=== PATIENT | female | born 1980 | race Caucasian/White ===

== ENCOUNTER 2016-07-07 14:15 | Emergency (ER) | payer BC, MEDICAID ==
[~2016-07-07] VITALS: Ht 177.8 cm; Wt 70.0 kg
[~2016-07-07 14:15] MED LIST: HYDR-3533 PO; IBUP600T26 PO; NAPR-576 PO; Z.0.BCPILL PO; ZOFR4TAB PO; ZOFR4TAB3 SL
[2016-07-07 14:17] VITALS: BP 135/97; PULSE 83; RESP 12; TEMP 98.4; O2SAT 100
--- NOTE | 2016-07-07 15:49 | PD ---
HPI Chief Complaint: Cardiac Complaint Time Seen by Provider: 15:45 Travel History International Travel<30 days: No Contact w/Intl Traveler<30days: No Traveled to known affect area: No History of Present Illness HPI 35-year-old female that presents to the ED for evaluation of palpitations and headache. Per patient this morning she woke up with a headache that was severe. Per patient his usual for her depression never usually gets headaches and not really when she wakes up. She denies any fevers chills or sweats. Per patient she took some [id number] pain relievers for headaches that have caffeine in it and she took 2 pills as noted on the box. This was successful in helping get rid of her headache but she feels that the Pain in the pills might have exacerbated her palpitations. Per patient since age 18 she's been having sensations of palpitations on and off through her entire life. Per patient most the time she is able to live with it and she actually that follow- up with a rivet flunky at some point who recommended that she takes metoprolol but she apparently did stop using this about a year and a half ago secondary to improvement of symptoms and no need for it per patient. She does have a history of mitral prolapse but no other acute disease. Patient only takes control. She denies any recent travel. The patient in the afternoon when she was working she developed another headache that felt similar to the one she had this morning so she took another dose of the pain reliever and it also had caffeine. Per patient she is concerned that maybe this caused the worsening palpitations. She denies any abdominal pain. No nausea or vomiting. The possibility of . No urinary or bowel movement issues. No cough or runny nose. The patient last time she had something like this she was told she had walking pneumonia. [facility] Past Medical History Heart Rhythm Problems: Yes (TACHYCARDIA) Cardiovascular Problems: Yes (MVP) Genitourinary: Yes (RECENT HEMATURIA) Immunizations Current: Yes ?: Not LMP: 07/04/16 Dilation and Curettage (D&C): Yes Past Surgical History Appendectomy: Yes Section: Yes (x 1) Thoracic Surgery: Yes (BREAST AUGMENTATION) Other Surgery: Yes (ADENOIDECTOMY) Social History Alcohol Use: Yes (SOCIALLY) Tobacco Use: No (SOCIALLY) Substance Use: No Allergies-Medications (Allergen,Severity, Reaction): Coded Allergies: Demerol (Verified Allergy, Severe, Anaphylaxis, 07/07/16) Oxycodone (Verified Allergy, Severe, Anaphylaxis, 07/07/16) Reported Meds & Prescriptions Reported Meds & Active Scripts Active No Active Prescriptions or Reported Medications Review of Systems Except as stated in HPI: all other systems reviewed are Neg Physical Exam Narrative GENERAL: SKIN: Warm and dry. HEAD: Atraumatic. Normocephalic. EYES: Pupils equal and round. No scleral icterus. No injection or drainage. ENT: No nasal bleeding or discharge. Mucous membranes pink and moist. Tongue is midline. No uvula deviation. NECK: Trachea midline. No JVD. CARDIOVASCULAR: Regular rate and rhythm. No murmurs, S3, S4. RESPIRATORY: No accessory muscle use. Clear to auscultation. Breath sounds equal bilaterally. GASTROINTESTINAL: Abdomen soft, non-tender, nondistended. Hepatic and splenic margins not palpable. MUSCULOSKELETAL: Extremities without clubbing, cyanosis, or edema. No obvious deformities. Full range of motion of the upper and lower extremities bilaterally. 2+ pulses bilaterally. NEUROLOGICAL: Awake and alert. No obvious cranial nerve deficits. Motor grossly within normal limits. Five out of 5 muscle strength in the arms and legs. Normal speech. PSYCHIATRIC: Appropriate mood and affect; insight and judgment normal. Data Data Last Documented VS Vital Signs Date Time Temp Pulse Resp B/P Pulse Ox O2 Delivery O2 Flow Rate FiO2 07/07/16 14:17 98.4 83 12 135/97 100 Room Air Orders Electrocardiogram (07/07/16 ) Complete Blood Count With Diff (07/07/16 15:31) Basic Metabolic Panel (Bmp) (07/07/16 15:31) Ckmb (Isoenzyme) Profile (07/07/16 15:31) Troponin I (07/07/16 15:31) Magnesium (Mg) (07/07/16 15:31) Thyroid Stimulating Hormone (07/07/16 15:31) Chest, Single Ap (07/07/16 15:31) Ct Brain W/O Iv Contrast(Rout) (07/07/16 15:31) Ed Urine Pregnancytest Poc (07/07/16 15:31) Acetaminophen (Tylenol) (07/07/16 17:00) Labs Laboratory Tests Test 07/07/16 15:35 White Blood Count 7.6 TH/MM3 Red Blood Count 4.49 MIL/MM3 Hemoglobin 13.6 GM/DL Hematocrit 40.3 % Mean Corpuscular Volume 89.8 FL Mean Corpuscular Hemoglobin 30.2 PG Mean Corpuscular Hemoglobin 33.6 % Concent Red Cell Distribution Width 12.4 % Platelet Count 416 TH/MM3 Mean Platelet Volume 7.0 FL Neutrophils (%) (Auto) 62.8 % Lymphocytes (%) (Auto) 26.0 % Monocytes (%) (Auto) 7.1 % Eosinophils (%) (Auto) 3.1 % Basophils (%) (Auto) 1.0 % Neutrophils # (Auto) 4.8 TH/MM3 Lymphocytes # (Auto) 2.0 TH/MM3 Monocytes # (Auto) 0.5 TH/MM3 Eosinophils # (Auto) 0.2 TH/MM3 Basophils # (Auto) 0.1 TH/MM3 CBC Comment DIFF FINAL Differential Comment Sodium Level 139 MEQ/L Potassium Level 3.7 MEQ/L Chloride Level 104 MEQ/L Carbon Dioxide Level 28.1 MEQ/L Anion Gap 7 MEQ/L Blood Urea Nitrogen 10 MG/DL Creatinine 1.02 MG/DL Estimat Glomerular Filtration 61 ML/MIN Rate Random Glucose 75 MG/DL Calcium Level 8.7 MG/DL Magnesium Level 2.2 MG/DL Total Creatine Kinase 91 U/L Troponin I LESS THAN 0.02 NG/ML Thyroid Stimulating Hormone 1.280 uIU/ML 3rd Gen [facility] Medical Decision Making Medical Screen Exam Complete: Yes Emergency Medical Condition: Yes Medical Record Reviewed: Yes Interpretation(s) CBC & BMP Diagram 07/07/16 15:35 EKG shows sinus rhythm with no sign of acute ischemia or arrhythmia troponin and CKMB negative Last Impressions Chest X-Ray 07/07/16 1531 Signed Impressions: Service Date/Time: June 16:17 - CONCLUSION: The hazy opacity overlying the lower lung zones bilaterally is felt to be related to the overlying breast implants. No definite acute finding is identified. If symptoms persist consider PA and lateral views of the chest for further evaluation. Mono Young MD Ct head negative Differential Diagnosis Palpitations versus normal exam versus CVA versus ACS versus migraine headache versus tension headache versus anxiety versus pneumonia versus pleurisy Narrative Course 35-year-old female that presents to the ED for evaluation of possible palpitations and headache. Patient was properly examined and was found to have signs and symptoms of unclear etiology at this time. From history and physical this appears to be possible reaction to caffeine taken to help with headache. Patient denies any having headaches like this in the past. Because of the CT of the head will be done. Patient is neurovascular intact. I do recommend lab work and imaging to rule out any sign of acute from the heart and lungs. Labs and imaging showed Diagnosis Primary Impression: Palpitations Additional Impression: Headache Qualified Code: G44.209 - Acute non intractable tension-type headache Patient Instructions: General Instructions Additional Instructions: Motrin or Tylenol for pain. Follow-up with PCP. See ED worsening symptoms. Try not to take too much caffeine. I recommend follow with rivet flunky at this continues to become a problem as she could require to be on metoprolol again. Med/Other Pt SpecificInfo: No Change to Meds Scripts No Active Prescriptions or Reported Meds Disposition: 01 DISCHARGE HOME Condition: Stable Khang Hernandez Jul 07, 2016 15:49
[2016-07-07 16:06] LABS: AUTOMATED NEUTROPHIL # 4.8 TH/MM3 (1.8-7.7); BASOPHIL # 0.1 TH/MM3 (0-0.2); EOSINOPHIL # 0.2 TH/MM3 (0-0.4); EOSINOPHIL % 3.1 % (0.0-4.0); HEMATOCRIT 40.3 % (35.0-46.0); HEMO FLAGS DIFF FINAL; MEAN CELL VOLUME 89.8 FL (80.0-100.0); MEAN CORPUSCULAR HEMOGLOBIN 30.2 PG (27.0-34.0); MEAN CORPUSCULAR HGB CONC 33.6 % (32.0-36.0); MONO % 7.1 % (0.0-8.0); NEUT % 62.8 % (16.0-70.0); PLATELET COUNT 416 TH/MM3 (150-450); RED BLOOD COUNT 4.49 MIL/MM3 (4.00-5.30); RED CELL DISTRIBUTION WIDTH 12.4 % (11.6-17.2); WHITE BLOOD COUNT 7.6 TH/MM3 (4.0-11.0)
[2016-07-07 16:37] LABS: ANION GAP 7 MEQ/L (5-15); BICARBONATE 28.1 MEQ/L (21.0-32.0); BLOOD UREA NITROGEN 10 MG/DL (7-18); CHLORIDE 104 MEQ/L (98-107); GLOMERULAR FILTRATION RATE 61 ML/MIN (>89); MAGNESIUM 2.2 MG/DL (1.5-2.5); POTASSIUM 3.7 MEQ/L (3.5-5.1); SODIUM (NA) 139 MEQ/L (136-145)
--- NOTE | 2016-07-07 16:49 | RADRPT ---
EXAM DATE/TIME: 07/07/2016 16:17 [facility] COMPARISON: CT ABDOMEN & PELVIS W/O CONTRAST, January 02, 2016, 2:47. INDICATIONS : Chest pain, short of breath. MEDICAL HISTORY : Mitral valve prolapse. Tachycardia. Neurocardiogenic syncope. SURGICAL HISTORY : None. ENCOUNTER: Initial ACUITY: 1 day PAIN SCORE: 3/10 LOCATION: chest FINDINGS: Portable upright AP view of the chest demonstrate normal-sized cardiac silhouette. There are hazy opa cities overlying the lower lung zones bilaterally. There appear to be breast implants present. Otherw ise, no effusion, consolidation, or pneumothorax is identified. Bones and soft tissues demonstrate no acute finding. CONCLUSION: The hazy opacity overlying the lower lung zones bilaterally is felt to be related to the overlying br east implants. No definite acute finding is identified. If symptoms persist consider PA and lateral v iews of the chest for further evaluation. Mono Young MD on July 07, 2016 at 16:43 Board Certified Radiologist. This report was verified electronically.
[2016-07-07 16:50] LABS: CREATINE KINASE 91 U/L (26-192)
[2016-07-07] MEDS ORDERED: ACETAMINOPHEN 325 MG TAB PO ONE (17:00)
[2016-07-07 18:51] VITALS: BP 115/63; PULSE 71; RESP 16; O2SAT 100
--- NOTE | 2016-07-07 20:51 | RADRPT ---
EXAM DATE/TIME: 07/07/2016 19:39 [facility] COMPARISON: No previous studies available for comparison. INDICATIONS : Dizziness and headache. RADIATION DOSE: 40.66 CTDIvol (mGy) MEDICAL HISTORY : None SURGICAL HISTORY : None. ENCOUNTER: Initial ACUITY: 1 day PAIN SCALE: 7/10 LOCATION: cranial TECHNIQUE: Multiple contiguous axial images were obtained of the head. Using automated exposure control and adj ustment of the mA and/or kV according to patient size, radiation dose was kept as low as reasonably a chievable to obtain optimal diagnostic quality images. FINDINGS: CEREBRUM: The ventricles are normal for age. No evidence of midline shift, mass lesion, hemorrhage or acute in farction. No extra-axial fluid collections are seen. POSTERIOR FOSSA: The cerebellum and brainstem are intact. The 4th ventricle is midline. The cerebellopontine angle i s unremarkable. EXTRACRANIAL: The visualized portion of the orbits is intact. SKULL: The calvaria is intact. No evidence of skull fracture. CONCLUSION: Normal examination. Mono Boyd MD on July 07, 2016 at 20:49 Board Certified Radiologist. This report was verified electronically.
[2016-07-07] MEDS ORDERED: METO25TA3 PO (20:55)
[2016-07-07] MEDS ORDERED: METOPROLOL TARTRATE 25 MG TAB PO ONE (21:00)
--- NOTE | 2016-07-08 16:43 | EKG ---
Date Performed: 07/07/2016 Time Performed: 14:36:51 PTAGE: 35 years EKG: Sinus rhythm NORMAL ECG NO PREVIOUS TRACING DOCTOR: Pedro Carney Interpretating Date/Time 07/08/2016 16:41:29
== END 2016-07-07 21:27 | disposition home or self-care (01) ==
LOC: NEPE 14:15
DX: R00.2 Palpitations (principal); R51 Headache; R07.9 Chest pain, unspecified; R06.02 Shortness of breath
CPT/HCPCS: 70450; 71010; 80048; 82550; 83735; 84443; 84484; 84703; 85025; 93005

== ENCOUNTER 2017-01-09 17:29 | Emergency (ER) | payer BC ==
[~2017-01-09] VITALS: Ht 177.8 cm; Wt 73.0 kg
[~2017-01-09 17:29] MED LIST changes: -HYDR-3533 PO; -IBUP600T26 PO; +METO25TA3 PO; -NAPR-576 PO; -Z.0.BCPILL PO; -ZOFR4TAB PO; -ZOFR4TAB3 SL
[2017-01-09 17:32] VITALS: BP 134/80; PULSE 75; RESP 17; TEMP 98.3; O2SAT 99
[2017-01-09] MEDS ORDERED: METO25TA3 PO (17:59)
[2017-01-09 18:52] LABS: AUTOMATED NEUTROPHIL # 4.8 TH/MM3 (1.8-7.7); BASOPHIL # 0.1 TH/MM3 (0-0.2); EOSINOPHIL # 0.3 TH/MM3 (0-0.4); EOSINOPHIL % 3.3 % (0.0-4.0); HEMATOCRIT 37.9 % (35.0-46.0); HEMO FLAGS DIFF FINAL; LYMPH % 29.1 % (9.0-44.0); LYMPHOCYTE # 2.4 TH/MM3 (1.0-4.8); MEAN CELL VOLUME 89.4 FL (80.0-100.0); MEAN CORPUSCULAR HEMOGLOBIN 30.5 PG (27.0-34.0); MEAN CORPUSCULAR HGB CONC 34.1 % (32.0-36.0); MONO % 7.4 % (0.0-8.0); NEUT % 59.2 % (16.0-70.0); PLATELET COUNT 376 TH/MM3 (150-450); RED BLOOD COUNT 4.24 MIL/MM3 (4.00-5.30); RED CELL DISTRIBUTION WIDTH 12.3 % (11.6-17.2); WHITE BLOOD COUNT 8.2 TH/MM3 (4.0-11.0)
--- NOTE | 2017-01-09 18:54 | PD ---
HPI Chief Complaint: Abdominal Pain Time Seen by Provider: 20:00 Travel History International Travel<30 days: No Contact w/Intl Traveler<30days: No Traveled to known affect area: No History of Present Illness HPI 36-year-old female A1 with chief complaint of right lower quadrant pain. Patient had positive home test. LMP 12/05/16. Symptom duration 6 days. Associated with some nausea without vomiting. Patient denies vaginal bleeding, discharge, dysuria, frequency, urgency. Patient called her GAME [employer] F[employer] MANAGER Dr. Schultz who instructed her to come to the emergency department to rule out ectopic . PFSH Past Medical History Heart Rhythm Problems: Yes (TACHYCARDIA) Cardiovascular Problems: Yes (MITRAL VALVE PROLAPSE) Diabetes: No Genitourinary: Yes (RECENT HEMATURIA) Immunizations Current: Yes Tetanus Vaccination: > 5 Years Influenza Vaccination: No ?: LMP: 12/05/16 Dilation and Curettage (D&C): Yes Past Surgical History Appendectomy: Yes Section: Yes (x 1) Thoracic Surgery: Yes (BREAST AUGMENTATION) Other Surgery: Yes (ADENOIDECTOMY) Social History Alcohol Use: Yes (SOCIALLY) Tobacco Use: No (SOCIALLY) Substance Use: No Allergies-Medications (Allergen,Severity, Reaction): Coded Allergies: Demerol (Verified Allergy, Severe, Anaphylaxis, 01/09/17) Oxycodone (Verified Allergy, Severe, Anaphylaxis, 01/09/17) Reported Meds & Prescriptions Reported Meds & Active Scripts Active Reported Metoprolol Tartrate 25 Mg Tab 25 Mg PO BID Review of Systems Except as stated in HPI: all other systems reviewed are Neg General / Constitutional: No: Fever Eyes: No: Visual changes HENT: No: Headaches Cardiovascular: No: Chest Pain or Discomfort Respiratory: No: Shortness of Breath Gastrointestinal: Positive: Abdominal Pain Genitourinary: No: Dysuria Musculoskeletal: No: Pain Skin: No Rash Neurologic: No: Weakness Psychiatric: No: Depression Physical Exam Narrative GENERAL: Alert, well-appearing female no acute distress. SKIN: Focused skin assessment warm/dry. HEAD: Atraumatic. Normocephalic. EYES: Pupils equal and round. No scleral icterus. No injection or drainage. ENT: No nasal bleeding or discharge. Mucous membranes pink and moist. NECK: Trachea midline. No JVD. CARDIOVASCULAR: Regular rate and rhythm. No murmur appreciated. RESPIRATORY: No accessory muscle use. Clear to auscultation. Breath sounds equal bilaterally. GASTROINTESTINAL: Abdomen soft, + TTP RLQ, no guarding, nondistended. Hepatic and splenic margins not palpable. No CVA tenderness GENITOURINARY: small amount of whitish/yellow discharge in the vaginal vault, cervical os closed, friable cervix, no adnexal mass. MUSCULOSKELETAL: No obvious deformities. No clubbing. No cyanosis. No edema. NEUROLOGICAL: Awake and alert. No obvious cranial nerve deficits. Motor grossly within normal limits. Normal speech. PSYCHIATRIC: Appropriate mood and affect; insight and judgment normal. Data Data Last Documented VS Vital Signs Date Time Temp Pulse Resp B/P Pulse Ox O2 Delivery O2 Flow Rate FiO2 01/09/17 17:57 18 01/09/17 17:32 98.3 75 134/80 99 Orders Beta Hcg (Quant/Titer) (01/09/17 18:03) Complete Blood Count With Diff (01/09/17 18:03) Basic Metabolic Panel (Bmp) (01/09/17 18:03) Type And Screen (01/09/17 18:03) Ed Urine Pregnancytest Poc (01/09/17 18:03) Us Pelvis (Ques Pr/Ect)W Trans (01/09/17 ) Gc And Chlamydia Pcr (01/09/17 20:17) Wet Prep Profile (01/09/17 20:17) Azithromycin Powd Pack (Zithromax Powd P (01/09/17 20:45) Ceftriaxone Inj (Rocephin Inj) (01/09/17 20:45) Lidocaine 1% Inj (50 Ml) (Xylocaine 1% I (01/09/17 20:45) Labs Laboratory Tests Test 01/09/17 01/09/17 18:10 20:19 White Blood Count 8.2 TH/MM3 Red Blood Count 4.24 MIL/MM3 Hemoglobin 12.9 GM/DL Hematocrit 37.9 % Mean Corpuscular Volume 89.4 FL Mean Corpuscular Hemoglobin 30.5 PG Mean Corpuscular Hemoglobin 34.1 % Concent Red Cell Distribution Width 12.3 % Platelet Count 376 TH/MM3 Mean Platelet Volume 7.1 FL Neutrophils (%) (Auto) 59.2 % Lymphocytes (%) (Auto) 29.1 % Monocytes (%) (Auto) 7.4 % Eosinophils (%) (Auto) 3.3 % Basophils (%) (Auto) 1.0 % Neutrophils # (Auto) 4.8 TH/MM3 Lymphocytes # (Auto) 2.4 TH/MM3 Monocytes # (Auto) 0.6 TH/MM3 Eosinophils # (Auto) 0.3 TH/MM3 Basophils # (Auto) 0.1 TH/MM3 CBC Comment DIFF FINAL Differential Comment Sodium Level 137 MEQ/L Potassium Level 3.9 MEQ/L Chloride Level 103 MEQ/L Carbon Dioxide Level 27.4 MEQ/L Anion Gap 7 MEQ/L Blood Urea Nitrogen 12 MG/DL Creatinine 0.74 MG/DL Estimat Glomerular Filtration 88 ML/MIN Rate Random Glucose 82 MG/DL Calcium Level 8.7 MG/DL Human Chorionic Gonadotropin, 3102 MIU/ML Quant Blood Type A POSITIVE Antibody Screen NEGATIVE Blood Bank Comment Clue Cells (Wet Prep) NONE SEEN Vaginal Trichomonas (Wet Prep) NONE SEEN Vaginal Yeast (Wet Prep) NONE SEEN Chlamydia trachomatis DNA NOT DETECTED (PCR) Neisseria gonorrhoeae DNA NOT DETECTED (PCR) MDM Medical Decision Making Medical Screen Exam Complete: Yes Emergency Medical Condition: Yes Differential Diagnosis Ectopic , ruptured cyst, UTI, PID Narrative Course 36-year-old female with right lower quadrant pain 6 days. Patient has no vaginal bleeding or discharge. IV access established, labs/ua ordered and pending, ultrasound ordered and pending CBC unremarkable BMP unremarkable beta hc transvaginal US: IUP with gestational sac answering 7 mm present no pole identified. Close obstetric follow-up recommended. Diagnostic findings discussed with patient. She was given a copy of ultrasound report and lab work. She was instructed to follow-up with her GAME [employer]ING FARM MANAGER in 1-2 days. Patient verbalizes understanding and agrees to plan. Strict return precautions were discussed with patient. Diagnosis Primary Impression: Threatened Additional Impression: Cervicitis Referrals: Seda Hammonds MD Additional Instructions: You need to have a repeat serum HCG in 2 days. It is important to follow up with your INFORMATICS MANAGER in 1-2 days. Return to the emergency department if you develop new or worsening symptoms such as increasing pain, fever/chills, or any new symptom. you were given a copy of your Ultrasound & lab work, please go over this with your INFORMATICS MANAGER Dr. Hammonds. Disposition: DISCHARGE HOME Condition: Stable Jannette Wallace Jan 09, 2017 18:54
[2017-01-09 19:07] LABS: BICARBONATE 27.4 MEQ/L (21.0-32.0); POTASSIUM 3.9 MEQ/L (3.5-5.1)
--- NOTE | 2017-01-09 20:11 | RADRPT ---
EXAM DATE/TIME: 01/09/2017 19:13 [facility] COMPARISON: No previous studies available for comparison. INDICATIONS : Right sided pelvic pain. LAB(S): Beta-hC MEDICAL HISTORY : Mitral valve prolapse. Tachycardia. Hematuria. SURGICAL HISTORY : Appendectomy. section. Dilation and curettage. Adenoidectomy. ENCOUNTER: Initial ACUITY: 1 week PAIN SCORE: 8/10 LOCATION: Bilateral pelvis MEASUREMENTS: UTERUS: 8.3 x 5.8 x 4.7 cm ENDOMETRIAL STRIPE: 7 mm RIGHT OVARY: 2.6 x 1.7 x 1.4 cm LEFT OVARY: 3.0 x 1.2 x 1.4 cm FREE FLUID: No FINDINGS: There is a 6 x 7 mm cyst in the fundal region of the endometrium which does contain a yolk sac, but a pole is not identified. No heart rate documented. 2 nabothian cysts in the cervix. Th ere are 2 cystic structures in the right ovary which around and without increased flow on color Doppl er measuring 1.2 x 1.2 cm and 1.2 x 1.0 cm. The left ovary has a normal appearance. No evidence of free fluid in the cul-de-sac. CONCLUSION: A gestational sac measuring 7 mm is identified containing a yolk sac, but no measurable pole se en. A pole should be seen with a quantitative hCG of 3000; recommend close obstetric followup. Stiven Luna MD on January 09, 2017 at 20:06 Board Certified Radiologist. This report was verified electronically.
[2017-01-09] MEDS ORDERED: cefTRIAXone 250 MG VIAL IM ONE (20:45)
[2017-01-09] MEDS ORDERED: LIDOCAINE HCL 1% 50 ML VIAL IM ONE (20:45)
[2017-01-09] MEDS ORDERED: AZITHROMYCIN PWD FOR SUSP 1 GM PACKET PO ONE (20:45)
[2017-01-09 23:10] LABS: CHLAMYDIA PCR NOT DETECTED (NOT DETECT); NEISSERIA PCR NOT DETECTED (NOT DETECT)
== END 2017-01-09 21:15 | disposition home or self-care (01) ==
LOC: NEPD 17:29
DX: O20.0 Threatened abortion (principal); O23.519 Infections of cervix in pregnancy, unspecified trimester; Z86.79 Personal history of other diseases of the circulatory system; Z3A.00 Weeks of gestation of pregnancy not specified
CPT/HCPCS: 76700; 76817; 80048; 84702; 84703; 85025; 86850; 86900; 86901; 87210; 87491; 87591; 96372; 99285; J0696

== ENCOUNTER 2017-02-17 19:30 | Emergency (ER) | payer BC ==
[~2017-02-17] VITALS: Ht 177.8 cm; Wt 75.0 kg
[~2017-02-17 19:30] MED LIST changes: +PREN29TA PO
[2017-02-17 19:38] VITALS: BP 133/64; PULSE 72; RESP 14; TEMP 98.2; O2SAT 100
--- NOTE | 2017-02-17 19:50 | PD ---
HPI Chief Complaint: Related Problem Time Seen by Provider: 19:43 Travel History International Travel<30 days: No Contact w/Intl Traveler<30days: No Traveled to known affect area: No History of Present Illness HPI 36 year female arrives to the emergency department via EMS from [facility] with complaint of vaginal bleeding and abdominal cramping. Patient is with last menstrual cycle occurring December 05. Patient was transferred here for an ultrasound. The [place] facility does not have the equipment to offer the ultrasound. Patient denies any shortness breath, chest pain, dizziness, lightheadedness, headache, urinary symptoms or other vaginal discharge. Patient states she is feeling a little bit nauseous but denies any vomiting or diarrhea. The patient has had 3 pregnancies with one resulting in a live . . PFSH Past Medical History Heart Rhythm Problems: Yes (TACHYCARDIA) Cardiovascular Problems: Yes (MITRAL VALVE PROLAPSE) Diabetes: No Diminished Hearing: No Immunizations Current: Yes Dilation and Curettage (D&C): Yes Past Surgical History Appendectomy: Yes Section: Yes (x 1) Other Surgery: Yes (ADENOIDECTOMY, breast augmentation) Social History Alcohol Use: No Tobacco Use: No Substance Use: No Allergies-Medications (Allergen,Severity, Reaction): Coded Allergies: meperidine (Unverified Allergy, Severe, Anaphylaxis, 02/17/17) oxycodone (Unverified Allergy, Severe, Anaphylaxis, 02/17/17) Reported Meds & Prescriptions Reported Meds & Active Scripts Active Reported Plus Iron 29-1 mg ( Vit-Iron Carbonyl) 29 Mg Iron-1 Mg Tab 1 Tab PO DAILY Review of Systems Except as stated in HPI: all other systems reviewed are Neg Physical Exam Narrative GENERAL: Well-nourished well-developed 36-year-old female complaining of vaginal bleeding and abdominal cramping at approximately 9-1/2 weeks . SKIN: Focused skin assessment warm/dry. HEAD: Atraumatic. Normocephalic. EYES: Pupils equal and round. No scleral icterus. No injection or drainage. ENT: No nasal bleeding or discharge. Mucous membranes pink and moist. NECK: Trachea midline. No JVD. CARDIOVASCULAR: Regular rate and rhythm. No murmur appreciated. RESPIRATORY: No accessory muscle use. Clear to auscultation. Breath sounds equal bilaterally. GASTROINTESTINAL: Abdomen soft, non-tender, nondistended. Hepatic and splenic margins not palpable. MUSCULOSKELETAL: No obvious deformities. No clubbing. No cyanosis. No edema. NEUROLOGICAL: Awake and alert. No obvious cranial nerve deficits. Motor grossly within normal limits. Normal speech. PSYCHIATRIC: Appropriate mood and affect; insight and judgment normal. Data Data Last Documented VS Vital Signs Date Time Temp Pulse Resp B/P (MAP) Pulse Ox O2 Delivery O2 Flow Rate FiO2 02/17/17 19:38 98.2 72 14 133/64 (87) 100 Orders Orders Us Pelvis (Ques Pr/Ect)W Trans (02/17/17 ) Misoprostol (Cytotec) (02/17/17 22:45) MDM Medical Decision Making Medical Screen Exam Complete: Yes Emergency Medical Condition: Yes Medical Record Reviewed: Yes Differential Diagnosis Threatened miscarriage, round ligament pain, ovarian cyst, inevitable miscarriage, missed Narrative Course 36-year-old female arrived to the emergency department for evaluation of abdominal cramping and vaginal bleeding all approximately 9-1/2 weeks . Last menstrual cycle . This is the patient's third . One has resulted in a live . Patient had one miscarriage several years ago. She was referred to [place] emergency Department from [facility] for an ultrasound. Patient had a full workup at [facility] including pelvic exam and lab work. The only thing [facility] could not provide for the patient is an ultrasound. Pelvic ultrasound ordered and pending Pelvic ultrasound revealed estimated gestational age 6 weeks 4 days with no heart tones identified with subchorionic hemorrhage noted. Patient's previous miscarriage in 2003 resulted in hemorrhage needing a blood transfusion. Spoke with OB hospitalist on-call and he recommended giving patient 600 mcg by mouth Cytotec and ensuring adequate pain relief for home if she starts experiencing pain while miscarrying. Patient will be discharged home with prescription for Lortab. Diagnosis Primary Impression: Incomplete miscarriage Referrals: Electrologist Primary Care Physician Patient Instructions: General Instructions, Miscarriage (ED) Additional Instructions: Take Lortab as directed as needed as needed for pain Follow up with your WET ROLLER next week Return to the emergency department for emergent conditions Thank you for choosing [place] [facility] for your health care needs Med/Other Pt SpecificInfo: Prescription(s) given Scripts Hydrocodone-Acetaminophen (Lortab) 5-325 Mg Tab 1 TAB PO Q6H Y for PAIN, #12 TAB 0 Refills Prov: Manasa Colindres MD 02/17/17 Disposition: 01 DISCHARGE HOME Condition: Stable Christianne Torres Feb 17, 2017 19:50
--- NOTE | 2017-02-17 22:12 | RADRPT ---
EXAM DATE/TIME: 02/17/2017 21:02 [facility] COMPARISON: No previous studies available for comparison. INDICATIONS : Bleeding and pain with . LAB(S): Beta-hC MEDICAL HISTORY : . Tachycardia. Mitral valve prolapse. Miscarriage. SURGICAL HISTORY : Appendectomy. section. Breast augmentation. Dilation and curettage. ENCOUNTER: Subsequent ACUITY: 1 day PAIN SCORE: 3/10 LOCATION: Bilateral pelvis MEASUREMENTS: UTERUS: 10.8 x 8.4 x 6.9 cm ENDOMETRIAL STRIPE: >20 mm RIGHT OVARY: 2.2 x 2.4 x 1.6 cm LEFT OVARY: 1.8 x 0.8 x 1.2 cm FREE FLUID: No CROWN RUMP LENGTH: 0.7 cm = 6 WKS 4 DAYS FHR: Non visualized. BPM FINDINGS: pole is visualized within gestational sac characteristic of a 6 week 4 day gestational age. How ever no heart tones identified. Uterus has a subchorionic hemorrhage measuring up to 4.1 x 3.4 x 1 cm. Probable corpus luteum cyst right ovary measuring about 1.5 cm. Left ovary unremarkable. No f ree fluid. Multiple nabothian cysts. CONCLUSION: Positive pole with estimated gestational age 6 weeks 4 days. However no heart tones ident ified most characteristic of in utero. Subchorionic hemorrhage with measurements above. 1 .5 cm right ovarian cyst. Vinnie Doyle MD on February 17, 2017 at 22:07 Board Certified Radiologist. This report was verified electronically.
[2017-02-17] MEDS ORDERED: MISOPROSTOL 200 MCG TAB PO ONE (22:45)
[2017-02-17] MEDS ORDERED: HYDR-3533 PO (22:55)
[2017-02-22] MEDS ORDERED: IBUP800T23 PO (09:07)
== END 2017-02-17 23:45 | disposition home or self-care (01) ==
LOC: NEPE 19:30
DX: O03.4 Incomplete spontaneous abortion without complication (principal)
CPT/HCPCS: 76700; 76817; 80048; 81001; 84702; 85025; 96360; 99284; 99285; J7030

== ENCOUNTER → 2017-02-22 | Day surgery (SDC) | payer BC ==
[~2017-02-22] VITALS: Ht 177.8 cm; Wt 75.2 kg
[~2017-02-22] MED LIST changes: +*morphine SULFATE 8 MG/ML PERIprocedure ONLY ONE; +ACETAMINOPHEN 1000 MG/100 ML 100 ML IV ONE; +ACETAMINOPHEN/HYDROcodone 325 MG/5 MG TAB ONE; +CHLORHEXIDINE GLUCONATE 2 % 1 PACK (2 CLOTHS) TOPICAL PRN; +DEXAMETHASONE SOD PHOS 4 MG/ML VIAL IV ONE; +DO NOT ADM ANY ANTICOAGULANT DRUGS PRN; +HYDR-3533 PO; +HYDROmorphone HCL PF 2 MG/ML VIAL ONE; +IBUP800T23 PO; +INSULIN HUMAN REGULAR 1,000 UNITS/10 ML VIAL SQ PRN; +KETOROLAC TROMETHAMINE 60 MG/2 ML (IM) VIAL IM ONE; +LACTATED RINGER'S 1000 ML INJ 1,000 ML IV ONE; +LACTATED RINGER'S 1000 ML IV PRN; +LIDOCAINE HCL 1% 50 ML VIAL ONE; +METHYLERGONOVINE MALEATE 0.2 MG/ML VIAL IM ONE; -METO25TA3 PO; +METOPROLOL TARTRATE 25 MG TAB PO PRN; +MIDAZOLAM HCL 2 MG/2 ML VIAL IV ONE; +ONDANSETRON HCL 4 MG/2 ML VIAL IV PUSH ONE; +OXYTOCIN 10 UNIT/ML AMP ONE; +POVIDONE IODINE 5% (ANTISEPSIS KIT) 4 APPLICATIONS EACH NARE PRN; +PROPOFOL 200 MG/20 ML AMP IV ONE; +SODIUM CHLORID 0.9% 500 ML IV PRN; +ceFAZolin 1,000 MG/NS 100 ML IV SCH; +ePHEDrine/NS 25 MG/5 ML SYR IV ONE
[2017-02-22 09:36] LABS: BLOOD, URINE MOD (NEG); COMMENT (UR) CULT NOT INDICATED; CULTURE IF INDICATED CULT NOT INDICATED; GLUCOSE,URINE NEG (NEG); KETONE, URINE NEG (NEG); MUCUS URINE MOD /lpf (OCC); NITRITE,URINE NEG (NEG); PH, URINE 5.5 (5.0-8.5); SQUAMOUS EPITHELIAL CELL URINE 2 /hpf (0-5); URINE COLOR YELLOW (YELLW/STRAW)
[2017-02-22 09:41] LABS: AUTOMATED NEUTROPHIL # 3.9 TH/MM3 (1.8-7.7); BASOPHIL % 0.5 % (0.0-2.0); EOSINOPHIL # 0.3 TH/MM3 (0-0.4); EOSINOPHIL % 4.9 % (0.0-4.0); HEMATOCRIT 35.1 % (35.0-46.0); HEMO FLAGS DIFF FINAL; LYMPH % 24.7 % (9.0-44.0); LYMPHOCYTE # 1.5 TH/MM3 (1.0-4.8); MEAN CELL VOLUME 89.8 FL (80.0-100.0); MEAN CORPUSCULAR HEMOGLOBIN 31.5 PG (27.0-34.0); MONO % 7.3 % (0.0-8.0); NEUT % 62.6 % (16.0-70.0); PLATELET COUNT 307 TH/MM3 (150-450); RED CELL DISTRIBUTION WIDTH 12.7 % (11.6-17.2); WHITE BLOOD COUNT 6.2 TH/MM3 (4.0-11.0)
[2017-02-22 11:19] LABS: BETA HCG QUANT 5123 MIU/ML (0-5)
--- NOTE | 2017-02-22 12:24 | HHI.PR ---
Immediate Post Op Note Procedure Date: Feb 22, 2017 Pre Op Diagnosis: (1) Missed Post Op Diagnosis: (1) Missed Surgeon: Seda Hammonds Purchasing/Receiving(s): [facility] staff Procedure: exam under anesthesia, dilation & curettage with suction Findings: anteflexed 8 wk size uterus, products of conception visualized on suction tubing during procedure Complications: none Specimen(s) removed: products of conception Estimated blood loss: 50 mL Anesthesia: General Drains: None Fluids: 1L IVF IVF Patient to: PACU Patient Condition: Good Seda Hammonds MD Feb 22, 2017 12:24
[2017-02-22 13:05] VITALS: BP 109/65; PULSE 62; RESP 16; TEMP 98.5; O2SAT 98
--- NOTE | 2017-02-22 21:07 | EKG ---
Date Performed: 02/22/2017 Time Performed: 09:22:09 PTAGE: 36 years EKG: Sinus rhythm NORMAL ECG PREVIOUS TRACING : 07/07/2016 14.36 Compared to prior tracing no significant change DOCTOR: Roseline Castelan Interpretating Date/Time 02/22/2017 21:06:15
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
== END | disposition home or self-care (01) ==
LOC: HSDC 08:12
PROVIDERS: ATTEND Obstetrics & Gynecology
DX: O02.1 Missed abortion (principal); Z3A.01 Less than 8 weeks gestation of pregnancy; O09.521 Supervision of elderly multigravida, first trimester; Z01.810 Encounter for preprocedural cardiovascular examination; Z01.818 Encounter for other preprocedural examination
CPT/HCPCS: 01965; 59820; 81001; 84702; 85025; 86850; 86900; 86901; 88305; 93005; J0131; J0690; J1100; J1170; J1885; J2210; J2250; J2270; J2405; J7120; J2590